=== PATIENT | female | born 1990 | race African-American/Black ===

== ENCOUNTER 2017-02-15 23:40 | Emergency (ER) | payer MEDICAID ==
[~2017-02-15] VITALS: Ht 160 cm; Wt 76.7 kg
[2017-02-16 00:03] VITALS: BP 103/70
== END 2017-02-16 01:05 | disposition home or self-care (01) ==
LOC: ED 23:40
DX: S39.012A Strain of muscle, fascia and tendon of lower back, initial encounter (principal); S80.01XA Contusion of right knee, initial encounter; J45.909 Unspecified asthma, uncomplicated; V89.2XXA Person injured in unspecified motor-vehicle accident, traffic, initial encounter; Y93.89 Activity, other specified; Y92.89 Other specified places as the place of occurrence of the external cause; Y99.8 Other external cause status
CPT/HCPCS: J1885

== ENCOUNTER 2017-10-26 01:25 | Emergency (ER) | payer MEDICAID ==
[~2017-10-26] VITALS: Ht 162.6 cm; Wt 72.6 kg
[2017-10-26 01:34] VITALS: Ht 162.6 cm; Wt 72.6 kg
[2017-10-26 05:00] VITALS: BP 119/65
== END 2017-10-26 05:00 | disposition home or self-care (01) ==
LOC: ED 01:25
DX: J02.9 Acute pharyngitis, unspecified (principal); J45.909 Unspecified asthma, uncomplicated
CPT/HCPCS: J1885; Q0092

== ENCOUNTER 2017-12-25 12:30 | Emergency (ER) | payer MEDICAID ==
[~2017-12-25] VITALS: Ht 160 cm; Wt 71.7 kg
[2017-12-25 12:41] VITALS: Ht 160 cm; Wt 71.7 kg
[2017-12-25 13:58] VITALS: BP 130/85
== END 2017-12-25 13:58 | disposition home or self-care (01) ==
LOC: ED 12:30
DX: S29.012A Strain of muscle and tendon of back wall of thorax, initial encounter (principal); M54.2 Cervicalgia; M25.512 Pain in left shoulder; J45.909 Unspecified asthma, uncomplicated; X58.XXXA Exposure to other specified factors, initial encounter; Y93.89 Activity, other specified; Y92.89 Other specified places as the place of occurrence of the external cause; Y99.8 Other external cause status